=== PATIENT | female | born 1960 | race Caucasian/White ===

== ENCOUNTER 2018-12-16 17:49 | Emergency (ER) | payer BC ==
[2018-12-16 18:09] VITALS: BP 133/85
--- NOTE | 2018-12-16 18:33 | UC ---
Skin Complaint HPI - HPI Summary HPI Summary: Patient is 56 year old female, who present today to the urgent care with a dog bite earlier today. Bitten by a neighbor's dog (she is aware of the dog's communicable disease specialist ) on the inner left thigh around 7:30 AM . She has not yet checked with the dog's communicable disease specialist if dog's immunization is complete. Her last tetanus shot was more than 5 years ago - History of Current Complaint Chief Complaint: UCLaceration Time Seen by Provider: 12/16/18 18:17 Stated Complaint: DOG BITE (LEFT LEG) ?: No Pain Intensity: 1 - Allergy/Home Medications Allergies/Adverse Reactions: Allergies Allergy/AdvReac Type Severity Reaction Status Date / Time No Known Allergies Allergy Verified 12/16/18 18:09 PMH/Surg Hx/FS Hx/Imm Hx - Additional Past Medical History Additional PMH: Past Medical History : Melanoma Past Surgical History: Melanoma resection Family History : Noncontributory Social History : No alcohol, non smoker, no drug use. Previously Healthy: Yes - Surgical History Surgical History: Yes Surgery Procedure, Year, and Place: 1991 [facility], [facility] 2003 WIDE EXCISION [place],. 2006 HYSTERECTOMY, [facility] [place]. 2009 LASIK EYE SURGERY, OFFICE. SEVERAL COLONOSCOPIES, [facility] [place]. RIGHT and left LEG VERICOSE VEINS 04/2016 - Social History Alcohol Use: None Substance Use Type: None Smoking Status (MU): Never Smoked Tobacco - Immunization History Most Recent Tetanus Shot: unknown- more than 5 yrs Review of Systems All Other Systems Reviewed And Are Negative: Yes Constitutional: Positive: Negative Skin: Positive: Other - Dog bite to the left thigh Eyes: Positive: Negative ENT: Positive: Negative Respiratory: Positive: Negative Cardiovascular: Positive: Negative Gastrointestinal: Positive: Negative Genitourinary: Positive: Negative Motor: Positive: Negative Neurovascular: Positive: Negative Musculoskeletal: Positive: Negative Neurological: Positive: Negative Psychological: Positive: Negative Is Patient Immunocompromised?: No Physical Exam - Summary Physical Exam Summary: Physical Exam: Const: Appears well. No signs of apparent distress present. Alert and oriented x 3. Musculo: Walks with a normal gait. Head/Face: Atraumatic, normocephalic on inspection. Eyes: Normal vision ENT: Hearing normal, Respiratory: Respirations are unlabored. CVS: Regular rate and Rhythm, S1S2 normal , no murmurs identified. Extremities: Peripheral circulation is grossly normal. Pulses 2+ Abdomen : Soft non tender Skin: Bite kary with surrounding bruising and redness noted on the distal medial left thigh. Lesion measuring about 5 cmx5 cm Neuro: Cranial nerves II to XII intact, motor and sensory intact. DTR Intact bilaterally. Mood is normal. Affect is normal. Triage Information Reviewed: Yes Vital Signs: Initial Vital Signs Temp 99.6 F 12/16/18 18:04 Pulse 85 12/16/18 18:04 Resp 15 12/16/18 18:04 BP 133/85 12/16/18 18:04 Pulse Ox 100 12/16/18 18:04 Vital Signs Reviewed: Yes Course/Dx - Course Course Of Treatment: During the visit today, we discussed the findings and further plan. Her wound was dressed , her tetanus shot was updated and she was given 1 dose of Augmentin. I will prescribe the medication to the pharmacy . I advised her that she should immediately go and check the immunization status of the dog and if not fully immunized she should return to the urgent care immediately Patient expressed understanding . - Diagnoses Provider Diagnosis: Dog bite of left thigh Discharge - Sign-Out/Discharge Documenting (check all that apply): Patient Departure All imaging exams completed and their final reports reviewed: No Studies - Discharge Plan Condition: Stable Disposition: HOME Prescriptions: Amoxicillin/Clavulanate TAB* [Augmentin TAB 875*] 875 mg PO BID 10 Days #19 tab Patient Education Materials: Animal Bite (ED), Rabies (ED) Referrals: Jen Wharton MD [Primary Care Provider] - If Needed Additional Instructions: Please start taking the medication as prescribed to the pharmacy . He is contact the dog's communicable disease specialist to confirm complete immunization of the dog. If you find out that the dog is not immunized, immediately come back. Patients blood pressure slightly high in Urgent care today , plan follow up with PCP for better control Return to Urgent care / ER if symptoms get worse. - Billing Disposition and Condition Condition: STABLE Disposition: Home
[2018-12-16] MEDS ORDERED: Tetan/Diph/Pertus SYR(Tdap)* 0.5 ML SYR(BOOSTRIX) use SYR IM ONE (18:39)
[2018-12-16] MEDS ORDERED: Amoxicillin/Clavulanate TAB* 875 MG PO ONE ×3 (18:39→19:28)
[2018-12-16] MEDS ORDERED: Amoxicillin/Clavulanate TAB* 250 MG ONE (19:16)
== END 2018-12-16 19:34 | disposition home or self-care (01) ==
LOC: UCCORT 17:49
DX: S71.152A Open bite, left thigh, initial encounter (principal); W54.0XXA Bitten by dog, initial encounter; Y92.89 Other specified places as the place of occurrence of the external cause; Z85.820 Personal history of malignant melanoma of skin
CPT/HCPCS: 90471; 90715; 99212; A9270-GY; G0463

== ENCOUNTER 2019-02-18 17:44 | Emergency (ER) | payer BC ==
--- NOTE | 2019-02-18 17:54 | UC ---
Lower Extremity/Ankle HPI - HPI Summary HPI Summary: 58 yo female presents with left ankle injury. She tells me that earlier today she was out for a run and tripped. She fell forward twisting her left ankle, landing on her right knee, and sliding her left cheek against the ground. No LOC. She was able to get to her feet and walked about another mile home. She cleaned her abrasions and applied a band-aid. As the day progressed she began to develop swelling and pain in the left lateral ankle. She is concerned about this as she has a marathon coming up at the end of the month that she is hoping to participate in. She denies headache, dizziness, numbness, tingling, vision changes. - History of Current Complaint Stated Complaint: L ANKLE INJ Time Seen by Provider: 02/18/19 17:54 Hx Obtained From: Patient Onset/Duration: Sudden Onset Severity Initially: Mild Severity Currently: Moderate Pain Intensity: 5 Pain Scale Used: 0-10 Numeric Aggravating Factor(s): Standing, Ambulation Alleviating Factor(s): Rest, Elevation Able to Bear Weight: Yes - Allergies/Home Medications Allergies/Adverse Reactions: Allergies Allergy/AdvReac Type Severity Reaction Status Date / Time No Known Allergies Allergy Verified 02/18/19 18:02 PMH/Surg Hx/FS Hx/Imm Hx - Additional Past Medical History Additional PMH: None - Surgical History Surgical History: Yes Surgery Procedure, Year, and Place: 1991 TOE SURGERY, [place]. 2003 WIDE EXCISION [place],. [place] [facility] [place] [facility] [place] and left LEG VERICOSE VEINS 04/2016 - Family History Known Family History: Positive: Non-Contributory - Social History Lives: With Family Alcohol Use: None Substance Use Type: None Smoking Status (MU): Never Smoked Tobacco - Immunization History Most Recent Tetanus Shot: unknown- more than 5 yrs Review of Systems All Other Systems Reviewed And Are Negative: Yes Constitutional: Positive: Negative Skin: Positive: Other - abrasions Respiratory: Positive: Negative Cardiovascular: Positive: Negative Neurovascular: Positive: Negative Musculoskeletal: Positive: Other: - Left ankle pain Neurological: Positive: Negative Psychological: Positive: Negative Physical Exam - Summary Physical Exam Summary: GENERAL: NAD. WDWN. No pain distress. SKIN: Superficial abrasion on right knee - NTTP. Superficial abrasion left cheek - NTTP. CHEST: No accessory muscle use. Breathing comfortably and in no distress. CV: Pulses intact PT and DP. Cap refill <2seconds MSK: LEFT ANKLE: Mild edema at lateral malleolus. FROM, but pain with inversion. TTP overlying ATFL. Strength 5/5. Negative talar tilt. No increased laxity. RIGHT KNEE: FROM without pain NEURO: Alert. Sensations intact and symmetric B/L LEs PSYCH: Age appropriate behavior. Triage Information Reviewed: Yes Vital Signs: Vital Signs: Temp Pulse Resp BP Pulse Ox 99.9 F 80 16 153/90 100 02/18/19 17:56 02/18/19 17:56 02/18/19 17:56 02/18/19 17:56 02/18/19 17:56 Vital Signs Reviewed: Yes Lower Extremity Course/Dx - Course Course Of Treatment: XR: wet read negative for fracture Last tetanus was 2 months ago for a dog bite. Suspect ankle sprain. She was placed in an RAHUL wrap, gel splint, and provided with crutches for comfort. Advised to RICE and take tylenol/ibuprofen for discomfort. If symptoms do not improve within 7 days to be rechecked by Orthopedics. - Differential Dx/Diagnosis Provider Diagnosis: Ankle sprain Discharge - Sign-Out/Discharge Documenting (check all that apply): Patient Departure All imaging exams completed and their final reports reviewed: No - Discharge Plan Condition: Stable Disposition: HOME Patient Education Materials: Ankle Sprain (ED) Referrals: Jen Wharton MD [Primary Care Provider] - Bib Nettles MD [Medical Doctor] - If Needed Additional Instructions: If you develop a fever, shortness of breath, chest pain, new or worsening symptoms - please call your PCP or go to the ED immediately. Your blood pressure was high at todays visit. Please see your primary provider within 4 weeks for recheck and re-evaluation. 1) Your X-Ray today does not show a fracture 2) Please rest, ice, and elevate your ankle intermittently throughout the day to reduce pain and swelling 3) Use the gel splint as needed for comfort and support 4) If your symptoms have not improved within 1 week, I recommend that you call Orthopedics at the number below to schedule an appointment for further evaluation. - Billing Disposition and Condition Condition: STABLE Disposition: Home - Attestation Statements Provider Attestation: Per institutional requirements, I have reviewed the chart, however, I was not consulted specifically or made aware of this patient by the midlevel provider. I did not personally evaluate, interact with , or disposition this patient.
[2019-02-18 18:02] VITALS: BP 153/90
--- NOTE | 2019-02-19 09:55 | UC ---
- Progress Note Progress Note: Radiologist reading for left ankle x-ray from February 18, 2019 comes back is soft tissue swelling laterally and no fracture. The provider interpretation from the same date is no fracture therefore there is no discrepancy. Course/Dx - Diagnoses Provider Diagnoses: Ankle sprain Discharge - Sign-Out/Discharge Documenting (check all that apply): Patient Departure All imaging exams completed and their final reports reviewed: Yes - Discharge Plan Condition: Stable Disposition: HOME Patient Education Materials: Ankle Sprain (ED) Referrals: Bib Nettles MD [Medical Doctor] - If Needed Jen Wharton MD [Primary Care Provider] - Additional Instructions: If you develop a fever, shortness of breath, chest pain, new or worsening symptoms - please call your PCP or go to the ED immediately. Your blood pressure was high at todays visit. Please see your primary provider within 4 weeks for recheck and re-evaluation. 1) Your X-Ray today does not show a fracture 2) Please rest, ice, and elevate your ankle intermittently throughout the day to reduce pain and swelling 3) Use the gel splint as needed for comfort and support 4) If your symptoms have not improved within 1 week, I recommend that you call Orthopedics at the number below to schedule an appointment for further evaluation. - Billing Disposition and Condition Condition: STABLE Disposition: Home
== END 2019-02-18 18:27 | disposition home or self-care (01) ==
LOC: UCCORT 17:44
DX: S99.912A Unspecified injury of left ankle, initial encounter (principal); W01.0XXA Fall on same level from slipping, tripping and stumbling without subsequent striking against object, initial encounter; Y93.02 Activity, running; Y92.9 Unspecified place or not applicable
CPT/HCPCS: 99212; G0463